=== PATIENT | female | born 1975 | race Caucasian/White ===

== ENCOUNTER 2018-11-28 13:06 | Emergency (ER) | payer OTHER ==
[~2018-11-28] VITALS: Ht 165.1 cm; Wt 87.0 kg
[~2018-11-28 13:06] MED LIST: EST1T PO; ONDA4TAB12 PO; ONDA4TAB6 PO; OXYB5TAB11 PO; SACC250C PO; SERT25TA PO
[2018-11-28] MEDS ORDERED: morphine 4 MG/ML inj SYRINge IV PRN (13:15)
[2018-11-28] MEDS ORDERED: normal saline 1000ML IV soln IVB ONE (13:15)
[2018-11-28] MEDS ORDERED: ondansetron 4mg rapidly disintigrating tab PO ONE (13:15)
[2018-11-28] MEDS ORDERED: ondansetron/PF 4mg/2ml inj IV ONE (13:15)
[2018-11-28 13:47] LABS: URINE HCG NEGATIVE (NEG)
[2018-11-28 14:47] LABS: BASOPHILS % (AUTO) 0.6 % (0-1); EOSINOPHILS # (AUTO) 0.1 X10'3 (0-0.9); HEMATOCRIT 42.9 % (35.0-45.0); HEMOGLOBIN 14.5 g/dl (12.0-16.0); LYMPHOCYTES # (AUTO) 1.6 X10'3 (1.1-4.8); LYMPHOCYTES % (AUTO) 30.8 % (21-51); MEAN CORPUSCULAR HGB CONC 33.7 g/dL (33.0-36.5); MEAN CORPUSCULAR VOLUME 86.1 FL (78-98); MEAN PLATELET VOLUME 8.4 FL (7.4-10.4); MONOCYTES # (AUTO) 0.5 X10'3 (0-0.9); MONOCYTES % (AUTO) 8.6 % (2-12); NEUTROPHILS # (AUTO) 3.1 X10'3 (1.8-7.7); PLATELET COUNT 370 X10'3 (140-440); RED BLOOD COUNT 4.99 X10'6 (4.20-5.60); RED CELL DISTRIBUTION WIDTH 14.9 % (11.5-14.5); WHITE BLOOD COUNT 5.2 X10'3 (4.5-11.0)
[2018-11-28 14:53] LABS: ALANINE AMINOTRANSFERASE 21 U/L (12-78); ALBUMIN 4.1 G/DL (3.4-5.0); ALKALINE PHOSPHATASE 86 IU/L (46-116); ANION GAP 10 (8-16); ASPARTATE AMINO TRANSFERASE 20 U/L (10-37); BILIRUBIN,TOTAL 0.5 MG/DL (0.1-1.0); BLOOD UREA NITROGEN 13 MG/DL (7-18); BUN/CREATININE RATIO 14.9 (6.6-38.0); CALCIUM 9.3 MG/DL (8.5-10.1); CHLORIDE 101 MMOL/L (99-107); CREATININE 0.87 MG/DL (0.40-0.90); GLUCOSE 89 MG/DL (70-104); LIPASE 84 U/L (73-393); POTASSIUM 3.5 MMOL/L (3.5-5.1); SODIUM 137 MMOL/L (135-145); TOTAL CARBON DIOXIDE 25.7 MMOL/L (24-32); TOTAL PROTEIN 8.1 G/DL (6.4-8.2); eGFR 70 ML/MIN
[2018-11-28] MEDS ORDERED: ONDA4TAB6 PO (15:16)
[2018-11-28] MEDS ORDERED: ketorolac trometh. 30mg/ml inj. IV ONE (16:15)
[2018-11-28 17:36] VITALS: BP 118/78
== END 2018-11-28 18:12 | disposition home or self-care (01) ==
LOC: ER 13:07
DX: R11.2 Nausea with vomiting, unspecified (principal); R19.7 Diarrhea, unspecified; R10.84 Generalized abdominal pain; G43.909 Migraine, unspecified, not intractable, without status migrainosus; K21.9 Gastro-esophageal reflux disease without esophagitis; Z90.49 Acquired absence of other specified parts of digestive tract; Z88.5 Allergy status to narcotic agent; Z79.899 Other long term (current) drug therapy; Z90.710 Acquired absence of both cervix and uterus; Z98.84 Bariatric surgery status
CPT/HCPCS: 36415; 80053; 81025; 83690; 85025; 96361; 96374; 96375; 99283; J1885; J2270; J2405; J7030

== ENCOUNTER 2020-12-10 10:36 | Emergency (ER) | payer BC, OTHER ==
[~2020-12-10] VITALS: Ht 170.2 cm; Wt 59.1 kg
[~2020-12-10 10:36] MED LIST changes: -OXYB5TAB11 PO; +OXYB5TAB16 PO
[2020-12-10] MEDS ORDERED: methylPREDNISolone sod succ 125mg/2ml vial IV ONE (11:30)
[2020-12-10] MEDS ORDERED: famotidine/PF 10 mg/ml inj IV ONE (11:30)
[2020-12-10] MEDS ORDERED: diphenhydrAMINE 50 mg/ml inj IV ONE (11:30)
[2020-12-10] MEDS ORDERED: ibuprofen tablet 400 MG TABLET PO ONE (13:55)
[2020-12-10 14:16] VITALS: BP 134/67
[2020-12-10] MEDS ORDERED: DOXY100C77 PO (14:37)
== END 2020-12-10 14:37 | disposition home or self-care (01) ==
LOC: ER 10:36
DX: T78.40XA Allergy, unspecified, initial encounter (principal); R07.89 Other chest pain; G43.909 Migraine, unspecified, not intractable, without status migrainosus; K21.9 Gastro-esophageal reflux disease without esophagitis; Z90.49 Acquired absence of other specified parts of digestive tract; Z90.710 Acquired absence of both cervix and uterus; Z98.890 Other specified postprocedural states; Z88.5 Allergy status to narcotic agent; Z79.899 Other long term (current) drug therapy; X58.XXXA Exposure to other specified factors, initial encounter
CPT/HCPCS: 93005; 96374; 96375; 99284; J1200; J2930; J3490

== ENCOUNTER 2022-09-12 06:15 | Observation (INO) | payer BC, OTHER ==
[2022-09-12] VITALS (8 sets, daily range): BP systolic 100–134; BP diastolic 49–74
[~2022-09-12] VITALS: Ht 165.1 cm; Wt 104.0 kg
[2022-09-12 06:51] LABS: WHITE BLOOD COUNT 5.6 X10'3 (4.5-11.0)
[2022-09-12 06:53] LABS: BASOPHILS % (AUTO) 0.8 % (0-1); EOSINOPHILS # (AUTO) 0.3 X10'3 (0-0.9); EOSINOPHILS % (AUTO) 6.1 % (0-6); HEMATOCRIT 35.6 % (35.0-45.0); HEMOGLOBIN 11.9 g/dl (12.0-16.0); LYMPHOCYTES # (AUTO) 2.1 X10'3 (1.1-4.8); LYMPHOCYTES % (AUTO) 37.3 % (21-51); MEAN CORPUSCULAR HEMOGLOBIN 27.9 PG (27.0-31.0); MEAN CORPUSCULAR HGB CONC 33.3 g/dL (33.0-36.5); MEAN CORPUSCULAR VOLUME 83.9 FL (78-98); MONOCYTES # (AUTO) 0.5 X10'3 (0-0.9); MONOCYTES % (AUTO) 8.7 % (2-12); NEUTROPHILS # (AUTO) 2.7 X10'3 (1.8-7.7); NEUTROPHILS % (AUTO) 47.1 % (42-75); PLATELET COUNT 360 X10'3 (140-440); RED BLOOD COUNT 4.24 X10'6 (4.20-5.60); RED CELL DISTRIBUTION WIDTH 14.3 % (11.5-14.5)
--- NOTE | 2022-09-12 07:01 | NUR ---
FIRST CONTACT. AO4 STATES SOME SOB WITH PRESSURE ON CHEST. SKIN WDI PINK.
[2022-09-12 07:04] LABS: ALANINE AMINOTRANSFERASE 33 U/L (12-78); ALBUMIN 3.7 G/DL (3.4-5.0); ALKALINE PHOSPHATASE 91 IU/L (46-116); ANION GAP 10 (8-16); ASPARTATE AMINO TRANSFERASE 24 U/L (10-37); BILIRUBIN,TOTAL 0.3 MG/DL (0.1-1.0); BLOOD UREA NITROGEN 15 MG/DL (7-18); BUN/CREATININE RATIO 21.4 (6.6-38.0); CALCIUM 9.2 MG/DL (8.5-10.1); CHLORIDE 104 MMOL/L (99-107); GLUCOSE 94 MG/DL (70-104); MAGNESIUM 1.9 MG/DL (1.5-2.4); POTASSIUM 3.9 MMOL/L (3.5-5.1); SODIUM 137 MMOL/L (135-145); TOTAL CARBON DIOXIDE 22.6 MMOL/L (24-32); TOTAL PROTEIN 7.4 G/DL (6.4-8.2); eGFR 89 ML/MIN
[2022-09-12 07:49] LABS: D-DIMER 0.43 MG/L FEU (0-0.50)
[2022-09-12] MEDS ORDERED: aspirin 81mg tab.chew PO ONE (09:25)
--- NOTE | 2022-09-12 09:29 | NUR ---
PER DR SHAW PT CAN EAT, MEAL REQUEST SENT TO DIETARY OFFICE
[2022-09-12] MEDS ORDERED: nitroGLYCERIN 0.4mg SUBLingual tab SL PRN (09:45)
[2022-09-12] MEDS ORDERED: HYDROmorphone inj. 0.5 MG/0.5 ML DISP.SYRIN IV PRN (09:45)
[2022-09-12] MEDS ORDERED: magnesium 4gm in 100ml NS 100 ML IV PRN (09:45)
[2022-09-12] MEDS ORDERED: aminophylline 250mg/10ml inj. IV PRN (09:45)
[2022-09-12] MEDS ORDERED: magnesium Cl slow-release 64mg tablet PO PRN (09:45)
[2022-09-12] MEDS ORDERED: potassium Cl 40MEQ/1/2NS 520ml 520 ML IV PRN (09:45)
[2022-09-12] MEDS ORDERED: potassium Cl 20 mEq SR tablet PO PRN ×2 (09:45)
[2022-09-12] MEDS ORDERED: PERFLUTREN PROTEIN-A MICROSPHR (Optison) 0.22 MG/ML 3ML VIAL IV ONE (09:45)
[2022-09-12] MEDS ORDERED: acetaminophen 325mg tablet PO PRN (09:45)
[2022-09-12] MEDS ORDERED: regadenoson 0.4mg/5ml syringe IV PRN (09:45)
[2022-09-12] MEDS ORDERED: magnesium hydroxide 30ml (MOM) UD suspension PO PRN (09:45)
[2022-09-12] MEDS ORDERED: ondansetron/PF 4mg/2ml inj IV PRN (09:45)
[2022-09-12] MEDS ORDERED: mag hydrox/Alum hydrox/simeth 30ml oral suspension PO PRN (09:45)
[2022-09-12] MEDS ORDERED: HYDROmorphone/PF 0.2 MG/ML SYRINGE IV PRN (09:45)
[2022-09-12] MEDS ORDERED: normal saline 1000ml 1,000 ML IV SCH (09:45)
[2022-09-12] MEDS ORDERED: metoprolol tartrate 1mg/ml inj IV PRN (09:45)
[2022-09-12] MEDS ORDERED: iohexol 350MG/ML 100ml bottle IV ONE (09:54)
[2022-09-12] MEDS ORDERED: LORazepam 1 MG tablet PO ONE (09:55)
--- NOTE | 2022-09-12 11:45 | NUR ---
pt to nuc med on monitor with RN, pt is GCS 15, alert and oriented, resp even and unlabored, skin p/w/d, able to transfer self without assist from gurney to wheelchair, no SOB, no nausea no chest pain at this time, SR on monitor, HR 70, no ectopy
--- NOTE | 2022-09-12 12:56 | NUR ---
Patient in room ED 2. I have received report from STEPHANIE SULTANA, and had the opportunity to ask questions and assume patient care. PT CURRENTLY AT NUCLEAR MEDICINE AND WILL COME TO UNIT WHEN DONE WITH PROCEDURE.
--- NOTE | 2022-09-12 13:00 | NUR ---
REPORT TO STEPHANIE MENDEZ FOR CONTINUATION OF CARE
--- NOTE | 2022-09-12 15:02 | NUR ---
Patient in room PCU 3025. I have received report from Rufus BROWN and had the opportunity to ask questions and assume patient care.
[2022-09-12] MEDS ORDERED: ESTR1TAB28 PO (15:07)
[2022-09-12] MEDS ORDERED: SERT-434 PO (15:07)
[2022-09-12] MEDS ORDERED: LORA10TA7 PO (15:07)
--- NOTE | 2022-09-12 15:29 | NUR ---
Problems reprioritized. Patient report given, questions answered & plan of care reviewed with ТАТЬЯНА STEINER.
--- NOTE | 2022-09-12 16:40 | NUR ---
PAGER ID: [phone] MESSAGE: [id number] Gio Munson Scan results are available. Thank you Sri VAZ [phone]
--- NOTE | 2022-09-12 17:00 | NUR ---
called and gave order for diet.
[2022-09-12] MEDS ORDERED: LORA-269 PO ×2 (17:20→17:21)
--- NOTE | 2022-09-12 18:11 | NUR ---
Patient discharged home with belongings and discharge paperwork. IV removed and tele box returned to television installer helper. Patient is stable for discharge. Patient escorted out by and left via private vehicle.
[2022-09-12] MEDS ORDERED: docusate sod 100mg capsule PO SCH (20:00)
[2022-09-12] MEDS ORDERED: enoxaparin 30mg/0.3ml syringe SQ SCH (20:00)
[2022-09-12] MEDS ORDERED: K and/or MAG REPLACEMENT MC SCH (20:00)
== END 2022-09-12 18:30 | disposition home or self-care (01) ==
LOC: ER 06:16 → ED HOLD 09:46 → PCU 3S 13:06
PROVIDERS: ADMIT Family Medicine; ATTEND Family Medicine
DX: R07.89 Other chest pain (principal); F41.8 Other specified anxiety disorders; G43.909 Migraine, unspecified, not intractable, without status migrainosus; K21.9 Gastro-esophageal reflux disease without esophagitis; Z86.16 Personal history of COVID-19; Z98.84 Bariatric surgery status; Z90.710 Acquired absence of both cervix and uterus; Z79.899 Other long term (current) drug therapy
CPT/HCPCS: 36415; 71045; 71275; 78452; 80053; 83735; 83880; 84484; 85025; 85379; 87081; 93005; 93017; 93306; 96360; 96361; 99285; A9500; G0378; J2785; J3490; J7030; Q9967

== ENCOUNTER 2022-11-04 07:55 | Emergency (ER) | payer BC, OTHER ==
[~2022-11-04] VITALS: Ht 165.1 cm; Wt 102.0 kg
[~2022-11-04 07:55] MED LIST changes: -EST1T PO; +ESTR1TAB28 PO; +LORA-269 PO; +LORA10TA7 PO; -ONDA4TAB12 PO; -ONDA4TAB6 PO; -OXYB5TAB16 PO; -SACC250C PO; +SERT-434 PO; -SERT25TA PO
--- NOTE | 2022-11-04 08:03 | NUR ---
MD AWARE OF PTS S\S - HE WILL PUT EYES ON PT
--- NOTE | 2022-11-04 08:13 | NUR ---
MD CALLED INTO EMERGENCT PROCEDURE. VERBAL GIVEN FOR 50MG BENADRYL ORAL AND 10MG DECARDON ORAL. PT VITALS REMAIN WNL AND LUNGS STILL CLEAR. PT ON MONITOR IN RM 19 CURRENTLY
[2022-11-04] MEDS: dexamethasone sod phosphate 10mg/ml inj PO STA (08:19)
[2022-11-04] MEDS: diphenhydrAMINE 25mg capsule PO ONE ×2 (08:19→10:47)
--- NOTE | 2022-11-04 09:12 | NUR ---
PT REMAINS CLEAR AND EQUAL WITH NO S\\S RESPIRATORY DISTRESS. SHE STATES HER SKIN NO LONGER FEELS "ON FIRE" AFTER MEDICATIONS. SHE IS PLACED BACK IN LOBBY WITH INSTRUCTION TO LET ME KNOW IF SHE FEELS WORSE.
[2022-11-04] MEDS ORDERED: PRED20TA PO (10:40)
[2022-11-04] MEDS ORDERED: EPIN0.1521 IM (10:40)
[2022-11-04 10:47] VITALS: BP 116/74
== END 2022-11-04 10:53 | disposition home or self-care (01) ==
LOC: ER 07:55
DX: T78.2XXA Anaphylactic shock, unspecified, initial encounter (principal); G43.909 Migraine, unspecified, not intractable, without status migrainosus; K21.9 Gastro-esophageal reflux disease without esophagitis; Z90.49 Acquired absence of other specified parts of digestive tract; Z88.5 Allergy status to narcotic agent; Z79.899 Other long term (current) drug therapy
CPT/HCPCS: 99285; J1100; Q0163

== ENCOUNTER 2022-11-10 09:36 | Emergency (ER) | payer BC, OTHER ==
[~2022-11-10] VITALS: Ht 165.1 cm; Wt 108.2 kg
[~2022-11-10 09:36] MED LIST changes: +EPIN0.1521 IM
[2022-11-10 09:38] VITALS: BP 157/107
== END 2022-11-10 11:48 | disposition left against medical advice (07) ==
LOC: ER 09:36
DX: T78.40XA Allergy, unspecified, initial encounter (principal); Z53.21 Procedure and treatment not carried out due to patient leaving prior to being seen by health care provider; X58.XXXA Exposure to other specified factors, initial encounter
CPT/HCPCS: 99281